=== PATIENT | male | born 1965 | race Caucasian/White ===

== ENCOUNTER → 2024-07-10 | Outpatient (CLI) | payer MEDICAID ==
--- NOTE | 2024-07-10 12:59 | RADIOLOGY REPORT ---
CLINICAL INDICATION: ACUTE LEFT ANKLE PAIN TECHNIQUE: 3 radiographic views of the left ankle were obtained. Comparison: None FINDINGS/IMPRESSION: There is no evidence of acute fracture or dislocation. The visualized joint space is well maintained. The alignment is anatomical. There is no radiopaque foreign body.
--- NOTE | 2024-07-10 13:33 | RADIOLOGY REPORT ---
EXAM: DI FOOT, COMPLETE (3VW MIN) INDICATION: ACUTE LEFT ANKLE PAIN TECHNIQUE: 3 views of the left foot COMPARISON: None FINDINGS/IMPRESSION: No radiographic evidence of an acute osseous abnormality. There is no acute fracture, osseous malalig nment, or aggressive focal osseous lesion. Minimal degenerative change at the 1st metatarsophalangeal joint. Posterior calcaneal tubular osseous spurring. Minimal midfoot degenerative change.
== END | disposition home or self-care (01) ==
LOC: RAD 11:45
PROVIDERS: ATTEND Family Medicine
DX: M77.32 Calcaneal spur, left foot (principal); M25.572 Pain in left ankle and joints of left foot
CPT/HCPCS: 73610; 73630